=== PATIENT | female | born 1960 | race Caucasian/White ===

== ENCOUNTER → 2016-07-15 | Outpatient (CLI) | payer OTHER ==
--- NOTE | 2016-07-15 13:05 | MA ---
Diagnostic Left Digital Mammogram With Tomosynthesis Clinical Indications: Left breast nodule Technique: Standard digital true-lateral and tomosynthesis CC projections are obtained. Comparison: Screening mammogram June 17, 2016 Breast density: B; There are scattered fibroglandular densities. Findings: CAD was reviewed. A new nodular density persists in the inner left breast. Impression: Further imaging with ultrasound to differentiate cyst from solid. We will perform the nayeli rtly. BI-RADS 0: Needs additional imaging evaluation, inner left breast [facility] will send a result letter to the patient. Negative mammography should not preclude additional workup of a clinically suspicious finding. The patient's information is entered into a reminder system with a target due date for her next mammo gram.
--- NOTE | 2016-07-15 13:43 | US ---
Left Breast Ultrasound History: New nodule inner left breast seen on screening mammography Comparison: Diagnostic mammogram earlier today, screening mammogram June 17, 2016 Technique: I first performed a directed physical examination. This was followed by ultrasound exam with a high frequency linear transducer. Findings: Physical examination is negative. At the 9:00 radial, approximately 5 day 6 cm from the nip ple is a 5 day 7 DANIELA thinly septated hypoechoic ovoid lesion that likely represents a cyst. There is no internal Doppler vascularity. Size and shape are consistent with the mammographic density. Impression: The mammographic finding likely represents a thinly septated benign cyst. Recommendation: 6 month followup left breast diagnostic mammogram and ultrasound to ensure stability. BI-RADS 3. Probably benign. Results and recommendation were discussed with patient, who is in agreement with the plan. [facility] will send the patient a reminder letter.
== END ==
LOC: FIMAGING 12:08
PROVIDERS: ATTEND Obstetrics & Gynecology
DX: N63 Unspecified lump in breast (principal)
CPT/HCPCS: 76641; 77061; G0206; G0279